=== PATIENT | female | born 1965 | race Caucasian/White ===

== ENCOUNTER 2024-04-27 14:02 | Emergency (ER) | payer OTHER, SELFPAY ==
[2024-04-27 14:07] VITALS: BP 152/90
--- NOTE | 2024-04-27 14:41 | ED.SKININJ ---
HPI-Injury
General
Chief Complaint: Skin Problem
Source: patient
Exam Limitations: none
Time Seen by Provider: 04/27/24 14:31
Nursing documentation reviewed up to this point in time: agreed with
History of Present Illness-Injury
Initial Injury comments:
59 yo female w h/o NIDDM, HTN, psoriases, states she had chills last night, 'maybe a low grade fever.' Awakened this a.m. with redness anterior Right lower leg. Had similar area on opposite leg 5 yrs ago and it cleared with Keflex.
She feels well otherwise,
Past History
Past History
ED Past Medical History: Asthma, HTN, NIDDM and Other (Psoriasis)
ED Past Surgical History: Tonsilectomy
Social History
Tobacco: Non-smoker
Personal: Partner
Living: with family
Review of Systems
Review of Systems
Allergies reviewed?: Yes
All Other Systems: ROS reviewed and negative except as documented in HPI and ROS
Constitutional: Reports chills; Denies fever
Respiratory: Denies trouble breathing
Cardiac: Denies chest pain
ABD/GI: Denies abdominal pain, nausea, vomiting, diarrhea or anorexia
: Denies dysuria or difficulty voiding
Skin: Reports other (several dry psoriatic patches of skin both feet and ankles. Reddened, mildly tender area anterior right lower leg )
Neurological: Reports no symptoms
Phy Exam
Physical Exam
Physical Exam:
GENERAL: No acute distress. A&Ox3.
CONSTITUTIONAL: T 99.8
EYES: clear, conjunctivae normal
RESPIRATORY: Regular respirations, nonlabored, lungs clear.
CARDIOVASCULAR: Regular rate and rhythm, no murmurs, no rubs.
GI: Soft, nontender, normal BS
MUSCULOSKELETAL: Moves with ease. Well perfused. No edema
SKIN: Warm, dry, pink. RLE from just below knee to just above ankle with 18 x 12 smooth erythema, minimally tender, minimal swelling, distal n/v intact. No calf tenderness, warmth, redness.
PSYCH: Normal mood and affect. Well kept, interactive and appropriate
NEUROLOGIC: Awake, alert and oriented. No focal neurological deficits
Course
Vital Signs
Initial and Last Documented VS:
Initial Vital Signs
Temp Pulse Resp BP Pulse Ox
99.8 F 125 18 152/90 97
04/27/24 14:07 04/27/24 14:07 04/27/24 14:07 04/27/24 14:07 04/27/24 14:07
Last Documented Vital Signs
Temp Pulse Resp BP Pulse Ox
100.5 F H 105 18 138/76 95
04/27/24 15:03 04/27/24 14:58 04/27/24 14:58 04/27/24 14:58 04/27/24 14:58
MDM/Problems Addressed
Differential Diagnosis Includes:
cellulitis, DVT
MDM/Problems Addressed:
59 yo female w h/o NIDDM, HTN, psoriases, states she had chills last night, maybe a low grade fever. Awakened this a.m. with redness anterior Right lower leg. Had similar area on opposite leg 5 yrs ago and it cleared with Keflex.
She feels well otherwise
No risk for DVT, no recent travel, calf is nontender, no swelling or warmth. ONLY the huff area is affected.
Rx for Keflex sent to her pharmacy
HR 125 on arrival 'I'm really nervous.'
HR 105 at discharge. Recheck temp 100.5 po by this examiner. She wants to go home and take Tylenol.
Instructed to drink plenty of fluids, take Tylenol or ibuprofen for fever
Lab work would change nothing at this point so deferred for now.
Exam is consistent with cellulitis. Area marked for observation and return symptoms reviewed with patient.
She is comfortable with this plan. She will pick her rx up on way home.
3:10 pm
Pt ambulated out with normal gait at discharge
*Critical Care Note
Total Time (30-74mins, 75-104mins- exclusive of procedures): Not Applicable
ED Attending Note
-
Portions of this chart may have been created with voice recognition software.� Occasional wrong word or��sound alike� substitutions may have occurred due to the inherent limitations of voice recognition software.
Discharge Plan
Departure
Patient Disposition: Home (Routine Discharge)
Date of Disposition: 04/27/24
Time of Disposition: 14:50
Patient with high blood pressure during this ER visit?: No
Condition: Good
Discharge Problem:
Cellulitis of right anterior lower leg
Instructions: Cellulitis (Skin Infection), Adult (DC)
Prescriptions:
New
cephalexin 500 mg capsule
500 mg PO QID 10 Days Qty: 40 0RF
Referrals:
Your, Doctor [Other] - Follow up in 5-7 days
Activity Restrictions/Additional Instructions:
As we discussed I sent a prescription to your pharmacy for Keflex 500 mg to take 4 times a day for 10 days
Return here immediately for fever above 100.5, worsening chills, vomiting, the red area marked spreads more than 2 inches, or feeling sicker in any way.
Otherwise see your doctor after the holiday weekend for recheck ( 4-5 days) if not MUCH improved by then
Interventions
Interventions:
*Risk Screen - Suicide Last Done: 04/27/24 14:07
*General Assessment Last Done: 04/27/24 14:07
*Neglect/Abuse Screening Last Done: 04/27/24 14:07
ED- Fall Risk Assessment Last Done: 04/27/24 15:04
*ED COVID-19 Vaccine History Last Done: 04/27/24 14:07
*Nursing Disposition Last Done: 04/27/24 15:04
ED-Skin Assessment Last Done: 04/27/24 14:58
Discharge Date and Time
Discharge Date/Time: 04/27/24 15:05
Print Language: [id number]
[2024-04-27 14:58] VITALS: BP 138/76
== END 2024-04-27 15:05 | disposition home or self-care (01) ==
LOC: EMR 14:02
PROVIDERS: EMERGENCY PHYSICIAN Emergency Medicine; FAMILY PHYSICIAN Family Medicine
DX: L03.115 Cellulitis of right lower limb (principal); E11.9 Type 2 diabetes mellitus without complications; I10 Essential (primary) hypertension
CPT/HCPCS: 99283